=== PATIENT | male | born 1975 | race Hispanic/Latino ===

== ENCOUNTER 2017-10-14 18:35 | Emergency (ER) | payer OTHER ==
[2017-10-14] MEDS ORDERED: DIAZEPAM 5 MG TABLET ONE (19:16)
[2017-10-14] MEDS ORDERED: ACETAMINOPHEN EXTRA STRENGTH 500 MG TABLET ONE (19:16)
== END 2017-10-14 20:54 | disposition home or self-care (01) ==
LOC: EDH 18:35
DX: S39.011A Strain of muscle, fascia and tendon of abdomen, initial encounter (principal); S20.212A Contusion of left front wall of thorax, initial encounter; S30.0XXA Contusion of lower back and pelvis, initial encounter; E78.5 Hyperlipidemia, unspecified; Z72.0 Tobacco use; V49.49XA Driver injured in collision with other motor vehicles in traffic accident, initial encounter; Y93.89 Activity, other specified; Y92.89 Other specified places as the place of occurrence of the external cause; Y99.8 Other external cause status
CPT/HCPCS: 71046; 93005

== ENCOUNTER 2018-10-10 09:07 | Emergency (ER) | payer OTHER | END 2018-10-10 09:45 | disposition home or self-care (01) | LOC: EDH 09:07 | DX: S01.81XD Laceration without foreign body of other part of head, subsequent encounter (principal); E78.5 Hyperlipidemia, unspecified; Z72.0 Tobacco use; X58.XXXD Exposure to other specified factors, subsequent encounter | CPT/HCPCS: 99281 ==